=== PATIENT | female | born 1950 | race Caucasian/White ===

== ENCOUNTER 2021-10-27 09:40 | Outpatient (CLI) | payer MEDICARE, OTHER | END 2021-10-27 09:41 | disposition home or self-care (01) | LOC: CSHMAMMO 09:40 | PROVIDERS: ATTEND Family Medicine | DX: Z13.820 Encounter for screening for osteoporosis (principal); M15.9 Polyosteoarthritis, unspecified | CPT/HCPCS: 77080 ==

== ENCOUNTER 2022-12-23 13:45 | Inpatient (IN) | payer MEDICARE, OTHER ==
[2022-12-23] MEDS ORDERED: Meclizine HCl 25 MG TAB ONE (14:51)
[2022-12-23] MEDS ORDERED: Ketorolac Tromethamine 30 MG/ML VIAL ONE (14:51)
[2022-12-23] MEDS ORDERED: Promethazine 25 MG TAB ONE (15:48)
[2022-12-23 15:50] LABS: #Basophils 0.1 10x3/uL (0.0-0.2); #Eosinphils 0.1 10x3/uL (0.0-0.5); #Monocytes 0.6 10x3/uL (0.0-1.1); #Neutrophils 5.3 10x3/uL (1.5-8.4); %Basophils 0.7 % (0.0-2.0); %Eosinophils 0.9 % (0.0-6.0); %Lymphocytes 24.3 % (18.0-47.0); %Neutrophils 65.7 % (40.0-75.0); Hemoglobin 15.1 g/dL (12.0-15.5); Mean Corpuscular HGB CONC 33.4 g/dL (32.0-36.0); Mean Corpuscular Hemoglobin 30.9 pg (27.0-33.0); Mean Corpuscular Volume 92.6 fl (81.6-98.3); Mean Platelet Volume 10.6 fl (7.4-10.4); Platelet Count 226 10x3/uL (150-450); RBC Distribution Width 12.5 % (11.5-14.5); Red Blood Cell (RBC) Count 4.88 10x6/uL (3.90-5.03)
[2022-12-23 15:56] LABS: ALT (SGPT) 22 U/L (8-55); AST (SGOT) 24 U/L (5-34); Albumin 4.8 g/dL (3.4-4.8); Alkaline Phosphatase 71 U/L (40-110); Anion Gap 17 mmol/L (10-20); BUN (Urea Nitrogen) 17 mg/dL (9.8-20.1); Bilirubin, Total 0.5 mg/dL (0.2-1.2); Calc. Creatinine Clearance 0 mL/min (70-130); Calcium 10.5 mg/dL (7.8-10.44); Carbon Dioxide 22 mmol/L (23-31); Chloride 110 mmol/L (98-107); Estimated GFR 51; Globulin 2.1 g/dL (2.4-3.5); Glucose 96 mg/dL (83-110); Potassium 4.1 mmol/L (3.5-5.1); Protein, Total 6.9 g/dL (5.8-8.1); Sodium 145 mmol/L (136-145)
[2022-12-23] MEDS ORDERED: Dexamethasone 10 MG/ML VIAL ONE (16:51)
[2022-12-23] MEDS ORDERED: Lorazepam 2 MG/ML VIAL ONE (16:52)
[2022-12-23] MEDS ORDERED: Ondansetron ODT 4 MG TAB PO PRN (19:26)
[2022-12-23] MEDS ORDERED: Ondansetron PF 4 MG/2 ML Vial IVP PRN (19:26)
[2022-12-23] MEDS ORDERED: Promethazine HCl 12.5 MG, Admixture Fee 1 EACH in Sodium Chloride 0.9% 50 ML IVPB PRN (19:29)
[2022-12-23] MEDS ORDERED: ALPRAZolam 0.25 MG TAB PO PRN (19:30)
[2022-12-23 19:34] VITALS: BMI 27.1
[2022-12-23 19:35] LABS: SARS-CoV-2 NAA Rapid Test Not Detected (NotDetected)
[2022-12-23] MEDS: Sodium Chloride 0.9% 1,000 ML IV SCH (19:50)
[2022-12-23] MEDS ORDERED: Amlodipine 5 MG TAB PO SCH (20:00)
[2022-12-23 21:59] LABS: Bilirubin Neg (Negative); Blood, Urine Negative (Negative); Clarity Clear (Clear); Glucose, Urine (Dipstick) Normal (Negative); Ketone, Urine Negative (Negative); Leukocyte 25 (Negative); Nitrite Negative (Negative); Protein, Urine (Dipstick) 100 mg/dl (Neg-Trace); Urobilinogen Normal mg/dL (Less than 2)
[2022-12-23 22:08] LABS: Bacteria/HPF None Seen HPF (None Seen); CAUTI Indications for Culture Pelvic or flank pain; RBC/HPF None Seen HPF (0-3); Squamous Epithelial 0-3 HPF (0-3)
[2022-12-23 22:09] LABS: Urine Culture Reflex No No
[2022-12-23] MEDS ORDERED: diphenhydrAMINE 25 MG CAP PO SCH (23:59)
[2022-12-24] MEDS ORDERED: FLU VACC QS2022-23(65YR UP)/PF 240 MCG/0.7 ML SYRINGE IM ONE (00:15)
[2022-12-24] MEDS: Ketorolac Tromethamine 30 MG/ML VIAL IVP PRN ×2 (05:00→11:20)
[2022-12-24] MEDS: Meclizine HCl 12.5 MG TAB PO PRN ×3 (05:01→21:48)
[2022-12-24] MEDS: Sodium Chloride 0.9% 1,000 ML IV SCH ×2 (05:07→15:07)
[2022-12-24 06:34] LABS: #Monocytes 0.1 10x3/uL (0.0-1.1); %Basophils 0.2 % (0.0-2.0); %Lymphocytes 11.1 % (18.0-47.0); %Neutrophils 87.2 % (40.0-75.0); Hemoglobin 14.1 g/dL (12.0-15.5); Mean Corpuscular HGB CONC 33.7 g/dL (32.0-36.0); Mean Corpuscular Hemoglobin 30.9 pg (27.0-33.0); Mean Corpuscular Volume 91.7 fl (81.6-98.3); Mean Platelet Volume 10.2 fl (7.4-10.4); Platelet Count 216 10x3/uL (150-450); RBC Distribution Width 12.4 % (11.5-14.5); Red Blood Cell (RBC) Count 4.57 10x6/uL (3.90-5.03); White Blood Cell (WBC) Count 9.2 10x3/uL (3.5-10.5)
[2022-12-24 06:38] LABS: Anion Gap 13 mmol/L (10-20); BUN (Urea Nitrogen) 17 mg/dL (9.8-20.1); Calc. Creatinine Clearance 63 mL/min (70-130); Calcium 9.3 mg/dL (7.8-10.44); Carbon Dioxide 19 mmol/L (23-31); Chloride 115 mmol/L (98-107); Estimated GFR 67; Glucose 145 mg/dL (83-110); Potassium 3.8 mmol/L (3.5-5.1); Sodium 143 mmol/L (136-145)
[2022-12-24] MEDS: Amlodipine 5 MG TAB PO SCH (10:04)
[2022-12-24] MEDS: Cholecalciferol 1,000 UNITS (25 MCG) TAB PO SCH (10:04)
[2022-12-24] MEDS: Aspirin Chewable 81 MG TAB PO SCH (10:05)
[2022-12-24] MEDS ORDERED: Lorazepam 2 MG/ML VIAL SLOW IVP SCH (11:00)
[2022-12-24 11:56] LABS: Free T4 (Free Thyroxine) 1.03 ng/dL (0.70-1.48); Thyroid Stimulating Hormone 0.5713 uIU/mL (0.35-4.94)
[2022-12-24] MEDS: PANCRELIPASE PO SCH ×2 (12:48→17:23)
[2022-12-24] MEDS: Rosuvastatin 10 MG TAB PO SCH (12:55)
[2022-12-24] MEDS ORDERED: Dexamethasone 4 mg/ml Vial SLOW IVP SCH (14:45)
[2022-12-24] MEDS ORDERED: Fluticasone Propionate Nasal Spray 16 gm Bottle NASAL SCH (15:00)
[2022-12-24] MEDS ORDERED: Lisinopril 20 MG TAB PO SCH (15:00)
[2022-12-24] MEDS: Labetalol HCl 100 MG/20 ML VIAL SLOW IVP PRN (15:16)
[2022-12-25] MEDS: Acetaminophen 325 MG TAB PO PRN ×3 (01:05→20:27)
[2022-12-25] MEDS: Sodium Chloride 0.9% 1,000 ML IV SCH ×2 (02:20→12:56)
[2022-12-25 05:28] LABS: #Monocytes 0.4 10x3/uL (0.0-1.1); #Neutrophils 12.6 10x3/uL (1.5-8.4); %Basophils 0.1 % (0.0-2.0); %Lymphocytes 9.4 % (18.0-47.0); %Monocytes 2.6 % (0.0-10.0); %Neutrophils 87.2 % (40.0-75.0); Hemoglobin 13.4 g/dL (12.0-15.5); Mean Corpuscular Hemoglobin 30.9 pg (27.0-33.0); Platelet Count 224 10x3/uL (150-450); RBC Distribution Width 12.6 % (11.5-14.5); Red Blood Cell (RBC) Count 4.33 10x6/uL (3.90-5.03); White Blood Cell (WBC) Count 14.4 10x3/uL (3.5-10.5)
[2022-12-25 05:38] LABS: Anion Gap 14 mmol/L (10-20); BUN (Urea Nitrogen) 21 mg/dL (9.8-20.1); Calc. Creatinine Clearance 64 mL/min (70-130); Calcium 9.3 mg/dL (7.8-10.44); Carbon Dioxide 19 mmol/L (23-31); Chloride 116 mmol/L (98-107); Estimated GFR 67; Glucose 148 mg/dL (83-110); Potassium 4.1 mmol/L (3.5-5.1); Sodium 145 mmol/L (136-145)
[2022-12-25] MEDS: Fluticasone Propionate Nasal Spray 16 gm Bottle NASAL SCH (08:46)
[2022-12-25] MEDS: PANCRELIPASE PO SCH ×3 (08:46→17:36)
[2022-12-25] MEDS: Allopurinol 300 MG TAB PO SCH (08:47)
[2022-12-25] MEDS: Amlodipine 5 MG TAB PO SCH (08:48)
[2022-12-25] MEDS: Dexamethasone 4 MG TAB PO SCH ×4 (08:48→23:26)
[2022-12-25] MEDS: Rosuvastatin 10 MG TAB PO SCH (08:48)
[2022-12-25] MEDS: Meclizine HCl 12.5 MG TAB PO PRN (08:50)
[2022-12-25] MEDS: Ascorbic Acid 500 mg Chewable Tablet PO SCH (08:50)
[2022-12-25] MEDS: Lisinopril 20 MG TAB PO SCH (08:51)
[2022-12-25] MEDS: Cholecalciferol 1,000 UNITS (25 MCG) TAB PO SCH (08:51)
[2022-12-25] MEDS ORDERED: Dexamethasone 10 MG in Sodium Chloride 0.9% 50 ML IVPB SCH (09:00)
[2022-12-25] MEDS: Aspirin Chewable 81 MG TAB PO SCH (10:09)
[2022-12-25] MEDS ORDERED: Magnevist 469MG/ML 20 ML VIAL ONE (10:37)
[2022-12-25] MEDS: Labetalol HCl 100 MG/20 ML VIAL SLOW IVP PRN (13:04)
[2022-12-26] MEDS: Aspirin Chewable 81 MG TAB PO SCH (08:26)
[2022-12-26] MEDS: PANCRELIPASE PO SCH ×3 (08:26→17:12)
[2022-12-26] MEDS: Fluticasone Propionate Nasal Spray 16 gm Bottle NASAL SCH (08:26)
[2022-12-26] MEDS: Cholecalciferol 1,000 UNITS (25 MCG) TAB PO SCH (08:26)
[2022-12-26] MEDS: Ascorbic Acid 500 mg Chewable Tablet PO SCH (08:27)
[2022-12-26] MEDS: Amlodipine 5 MG TAB PO SCH (08:27)
[2022-12-26] MEDS: Rosuvastatin 10 MG TAB PO SCH (08:27)
[2022-12-26] MEDS: Allopurinol 300 MG TAB PO SCH (08:27)
[2022-12-26] MEDS: Lisinopril 20 MG TAB PO SCH (08:27)
[2022-12-26] MEDS: Dexamethasone 4 MG TAB PO SCH ×3 (08:27→17:12)
[2022-12-26] MEDS ORDERED: Amlodipine 5 MG TAB PO SCH (13:00)
[2022-12-26] MEDS: Labetalol HCl 100 MG/20 ML VIAL SLOW IVP PRN (17:13)
[2022-12-26] MEDS: Meclizine HCl 12.5 MG TAB PO PRN (21:10)
[2022-12-27 04:13] LABS: Anion Gap 14 mmol/L (10-20); BUN (Urea Nitrogen) 28 mg/dL (9.8-20.1); Calc. Creatinine Clearance 56 mL/min (70-130); Calcium 9.8 mg/dL (7.8-10.44); Carbon Dioxide 22 mmol/L (23-31); Chloride 109 mmol/L (98-107); Estimated GFR 57; Glucose 141 mg/dL (83-110); Potassium 4.4 mmol/L (3.5-5.1); Sodium 141 mmol/L (136-145)
[2022-12-27] MEDS: Meclizine HCl 12.5 MG TAB PO PRN (04:14)
[2022-12-27] MEDS: Acetaminophen 325 MG TAB PO PRN (04:14)
[2022-12-27] MEDS ORDERED: Amlodipine 10 MG TAB PO SCH (09:00)
[2022-12-27] MEDS: Allopurinol 300 MG TAB PO SCH (09:16)
[2022-12-27] MEDS: Aspirin Chewable 81 MG TAB PO SCH (09:17)
[2022-12-27] MEDS: Lisinopril 20 MG TAB PO SCH (09:17)
[2022-12-27] MEDS: Rosuvastatin 10 MG TAB PO SCH (09:18)
[2022-12-27] MEDS: Cholecalciferol 1,000 UNITS (25 MCG) TAB PO SCH (09:19)
[2022-12-27] MEDS: Ascorbic Acid 500 mg Chewable Tablet PO SCH (09:19)
[2022-12-27] MEDS: Dexamethasone 4 MG TAB PO SCH ×2 (09:20→12:36)
[2022-12-27] MEDS: PANCRELIPASE PO SCH ×2 (09:20→12:36)
[2022-12-27] MEDS: Fluticasone Propionate Nasal Spray 16 gm Bottle NASAL SCH (09:21)
[2022-12-27 17:01] VITALS: TEMP 97.8
[2022-12-27 17:03] VITALS: BP 162/77
== END 2022-12-27 17:00 | disposition home health service (06) | DRG 55 ==
LOC: CSHERS 13:45 → CSHTELE 19:29 → OBSVTOIN 12-25 15:58
PROVIDERS: ADMIT Hospitalist; ATTEND Internal Medicine
DX: D32.0 Benign neoplasm of cerebral meninges (principal); N39.0 Urinary tract infection, site not specified; R42 Dizziness and giddiness; I10 Essential (primary) hypertension; E78.5 Hyperlipidemia, unspecified; M10.9 Gout, unspecified; M54.9 Dorsalgia, unspecified; G89.29 Other chronic pain; K21.9 Gastro-esophageal reflux disease without esophagitis; F41.9 Anxiety disorder, unspecified; E07.89 Other specified disorders of thyroid; Z87.820 Personal history of traumatic brain injury; Z88.1 Allergy status to other antibiotic agents; Z98.890 Other specified postprocedural states; Z90.710 Acquired absence of both cervix and uterus; Z82.49 Family history of ischemic heart disease and other diseases of the circulatory system; Z83.79 Family history of other diseases of the digestive system; Z88.8 Allergy status to other drugs, medicaments and biological substances; Z20.822 Contact with and (suspected) exposure to COVID-19
CPT/HCPCS: 36415; 70450; 70553; 71045; 72125; 76536; 80048; 80053; 81001; 84439; 84443; 84484; 85025; 85652; 93005; 94760; 96361; 96374; 96375; 96376; A9579; G0378; J1100; J1885; J2060; J2405; J7050; J8540; Q0169; U0002

== ENCOUNTER 2024-07-13 10:35 | Outpatient (CLI) | payer MEDICARE, OTHER ==
[2024-07-13] MEDS ORDERED: Magnevist 469MG/ML 20 ML VIAL ONE (15:52)
== END 2024-07-13 10:36 | disposition home or self-care (01) ==
LOC: CSHMRI 10:35
PROVIDERS: ATTEND Neurological Surgery
DX: D49.6 Neoplasm of unspecified behavior of brain (principal); G93.89 Other specified disorders of brain; G31.9 Degenerative disease of nervous system, unspecified; I67.89 Other cerebrovascular disease
CPT/HCPCS: 36415; 70553; 76376; 82565